=== PATIENT | female | born 1985 | race Two or more races ===

== ENCOUNTER 2024-04-09 21:14 | Emergency (ER) | payer BC, MEDICAID ==
[~2024-04-09] VITALS: Ht 170.2 cm; Wt 150.0 kg
[~2024-04-09 21:14] MED LIST: CIPR250T4 PO; MESA1.2T PO; METH2.5T PO; METR-159 PO; PRED20TA PO
[2024-04-09] MEDS: ipratropium/albuterol 3ml nebule NEB PRN (21:29)
[2024-04-09 21:30] VITALS: PULSE 103; RESP 20; O2SAT 95
[2024-04-09 21:36] VITALS: PULSE 76; RESP 18; O2SAT 97
[2024-04-09 21:39] LABS: BASOPHILS # (AUTO) 0.1 X10'3 (0-0.2); EOSINOPHILS # (AUTO) 0.8 X10'3 (0-0.9); EOSINOPHILS % (AUTO) 6.7 % (0-6); HEMOGLOBIN 13.1 g/dl (12.0-16.0); MONOCYTES # (AUTO) 1.1 X10'3 (0-0.9); RED BLOOD COUNT 4.74 X10'6 (4.20-5.60)
[2024-04-09] MEDS: predniSONE 20 mg tablet PO ONE (21:39)
[2024-04-09 21:46] LABS: ALANINE AMINOTRANSFERASE 31 U/L (12-78); ALBUMIN 3.5 G/DL (3.4-5.0); ALBUMIN/GLOBULIN RATIO 0.9 (1.1-1.5); ALKALINE PHOSPHATASE 88 IU/L (46-116); ANION GAP 8 (8-16); ASPARTATE AMINO TRANSFERASE 14 U/L (10-37); BILIRUBIN,TOTAL 0.3 MG/DL (0.1-1.0); BLOOD UREA NITROGEN 8 MG/DL (7-18); BUN/CREATININE RATIO 8.3 (10.0-20.0); CALCIUM 8.8 MG/DL (8.5-10.1); CHLORIDE 103 MMOL/L (99-107); CREATININE 0.96 MG/DL (0.40-0.90); GLUCOSE 92 MG/DL (70-104); POTASSIUM 3.4 MMOL/L (3.5-5.1); SODIUM 138 MMOL/L (135-145); TOTAL CARBON DIOXIDE 26.8 MMOL/L (24-32); TOTAL PROTEIN 7.5 G/DL (6.4-8.2); eCRCL 76 ML/MIN; eGFR 64 ML/MIN
[2024-04-09 21:51] LABS: BASOPHILS % (AUTO) 1.1 % (0-1); HEMATOCRIT 39.2 % (35.0-45.0); LYMPHOCYTES # (AUTO) 2.6 X10'3 (1.1-4.8); LYMPHOCYTES % (AUTO) 23.1 % (21-51); MEAN CORPUSCULAR HEMOGLOBIN 27.7 PG (27.0-31.0); MEAN CORPUSCULAR HGB CONC 33.5 g/dL (33.0-36.5); MEAN CORPUSCULAR VOLUME 82.7 FL (78-98); MEAN PLATELET VOLUME 7.1 FL (7.4-10.4); MONOCYTES % (AUTO) 9.3 % (2-12); NEUTROPHILS # (AUTO) 6.8 X10'3 (1.8-7.7); NEUTROPHILS % (AUTO) 59.8 % (42-75); PLATELET COUNT 361 X10'3 (140-440); RED CELL DISTRIBUTION WIDTH 13.7 % (11.5-14.5); WHITE BLOOD COUNT 11.4 X10'3 (4.5-11.0)
[2024-04-09 21:55] LABS: PRO BRAIN NATRIURETIC PEPTIDE 98 PG/ML (0-125)
[2024-04-09] MEDS: albuterol 2.5 MG/3 ML nebule NEB ONE (23:11)
[2024-04-09 23:12] VITALS: PULSE 95; RESP 18; O2SAT 95
[2024-04-09] MEDS ORDERED: PRED50TA PO (23:14)
[2024-04-09 23:21] VITALS: PULSE 99; RESP 16; O2SAT 96
[2024-04-09 23:37] VITALS: BP 149/59; PULSE 98; RESP 16; TEMP 98.2; O2SAT 97
== END 2024-04-09 23:40 | disposition home or self-care (01) ==
LOC: ER 21:16
DX: J45.901 Unspecified asthma with (acute) exacerbation (principal); Z91.013 Allergy to seafood; Z88.8 Allergy status to other drugs, medicaments and biological substances; Z79.899 Other long term (current) drug therapy; Z79.2 Long term (current) use of antibiotics
CPT/HCPCS: 36415; 71045; 80053; 83880; 84484; 85025; 93005; 94640; 99285; J7512; 94760